=== PATIENT | male | born 1970 ===

== ENCOUNTER → 2022-05-25 08:11 | Outpatient (BNVA) | payer MEDICAID, SELFPAY | PROVIDERS: PCP Family Medicine; Visit Provider Internal Medicine Cardiovascular Disease | DX: I48.19 Other persistent atrial fibrillation (principal); R07.9 Chest pain, unspecified | CPT/HCPCS: 93005; 99202 ==

== ENCOUNTER → 2022-06-01 15:24 | Outpatient (REF) | payer MEDICAID, SELFPAY ==
--- NOTE | 2022-06-01 15:30 | CA_ITS ---
Transthoracic Echocardiogram Patient (Last, First, Middle): Yovany Meraz, Gender: Male Date of : 1970 Age: 52 Procedure Date: 06/01/2022 Procedure Type: Transthoracic Echocardiogram Location: OP Height: 180.34 cm Weight: 111.13 kg BSA: 2.30 m2 Heart Rate: bpm BP: 143 / 84 mmHg Nursing Home Manager: Referring MD: José Miguel Cullen MD Symptoms: I48.19 - Other persistent atrial fibrillation Study Quality: Fair ECG Rhythm: Atrial Fibrillation Conclusions: - The left ventricular systolic function is mildly decreased. The calculated ejection fraction is 42% by biplane method. - No obvious valvular pathology seen on this study. Findings Procedure Information Contrast agent, definity, is being given per protocol without apparent complications. Left Ventricle Normal left ventricular cavity size. There is mildly increased left ventricular wall thickness. The left ventricular systolic function is mildly decreased. The calculated ejection fraction is 42% by biplane method. There is mild global hypokinesis. Diastolic function is indeterminate on the basis of available data. Right Ventricle Mildly increased right ventricular cavity size. There is normal right ventricular systolic function. Atria The left atrium is mildly dilated. The right atrium is normal in size. Aortic Valve There is a normal trileaflet aortic valve. There is no aortic valve stenosis. There is no aortic valve regurgitation. Mitral Valve The mitral valve appears normal. There is trace mitral valve regurgitation. There is no mitral valve stenosis. Pulmonic Valve The pulmonic valve is likely normal. Tricuspid Valve Normal tricuspid valve structure. There is trace tricuspid valve regurgitation. There is no evidence of pulmonary hypertension. Great Vessels The asc aorta is normal in size. Venous The inferior vena cava is mildly dilated and collapses less than 50% with inspiration. Pericardium/Pleural There is no evidence of pericardial effusion. Prior Study Comparison No prior study available for comparison. Recommendations, Care & Conclusions No obvious valvular pathology seen on this study. Measurements 2D Linear Measurements IVSd: 1.04 0.6-0.9/0.6-1.0 cm LVIDd: 4.91 3.9-5.3/4.2-5.9 cm LVIDd Index: 2.13 2.4-3.2/2.2-3.1 cm/m2 LVIDs: 3.71 2.0-3.6 cm LVPWd: 1.06 0.7-1.1 cm Ao Root: 3.40 2.1-3.5 cm LA Diam: 4.70 2.7-3.8/3.0-4.0 cm LAIDs Index: 2.04 1.5-2.3 cm/m2 LV Mass: 235.15 67-162/88-224 g LV Mass Index: 102.24 43-95/49-115 g/m2 LVOT Diam: 2.40 3.0+(-)1.3 cm 2D Systolic Function EF 4C: 39.70 >55% EF 2C: 44.80 >55% EF BiP: 42.10 >55% Mitral Valve MV Pk E: 0.79 MV Decel Time: 205.00 E'Lateral: 11.10 E'Medial: 7.72 E/E' Med: 10.20 E/E' Lat: 7.10 PHT: 60.00 MVA PHT: 3.67 Decel [place]: 3.84 Aortic Valve AoV Pk Nathanael: 1.07 AoV Mn Nathanael: 0.67 AoV VTI: 0.21 AoV Pk Grad: 5.00 Aov Mn Grad: 2.00 PAMELA Cont.VTI: 3.58 LVOT LVOT Pk Nathanael: 0.78 LVOT Mn Nathanael: 0.49 LVOT VTI: 0.16 LVOT Pk Grad: 2.00 LVOT Mn Grad: 1.00 LVOT Diam: 2.40 LVOT Area: 4.52 Diastolic Function MV Pk E: 0.79 E'Medial: 7.72 E/E' Med: 10.20 E' Laterial: 11.10 E/E' Lat: 7.10 Right Ventricle TAPSE (mm): 22.00 Tricuspid Valve TR Pk Nathanael: 2.07 TR Pk Grad: 17.00 RA Press: 15.00 RVSP: 32.00 Great Vessels Aorta Ao Root-2D: 3.40 2.0-3.7 cm Ao Asc: 3.20 2.1-3.4 cm Pulmonary Valve PV Pk Nathanael: 0.92 Peak PV Grad: 3.00 Updated in Other Vendor System with Status of Final Delmer Watson MD electronically signed on 06/03/2022 12:10:54 PM with status of Final
[2022-06-01 16:04] LABS: Hematocrit 45.3 % (42.0-52.0); Hemoglobin 15.3 g/dl (14.0-18.0); Mean Corpuscular HGB Conc 33.8 g/dl (31.0-36.0); Mean Corpuscular Hemoglobin 30.8 pg (27.0-33.0); Mean Corpuscular Volume 91.3 fL (80.0-98.0); Mean Platelet Volume 8.5 fL (9.4-12.4); Platelet Count 226 X10*3/uL (160-400); Red Blood Count 4.96 X10*6/uL (4.60-5.80); Red Cell Distribution Width 12.3 % (11.0-16.0); White Blood Count 5.6 X10*3/uL (4.8-10.8)
[2022-06-01 16:25] LABS: B Type Natriuretic Peptide 77 pg/mL (<100)
[2022-06-01 16:40] LABS: Alanine Aminotransferase 34 U/L (0-40); Albumin Level 4.1 g/dL (3.5-5.0); Alkaline Phosphatase 62 U/L (39-117); Anion Gap 12 (12-20); Aspartate Amino Transferase 19 U/L (5-37); Bilirubin Direct 0.3 mg/dL (0.0-0.5); Bilirubin Total 1.1 mg/dL (0.0-1.0); Blood Urea Nitrogen 15 mg/dL (9-16); Calcium 9.4 mg/dL (8.4-10.2); Carbon Dioxide 27 mmol/L (22-29); Chloride 106 mmol/L (96-108); Estimated Glomerular Filt Rate > 60; Glucose Random 111 mg/dL (60-115); Potassium 4.5 mmol/L (3.3-5.1); Sodium 140 mmol/L (135-145); Total Protein 6.8 g/dL (6.5-8.0)
[2022-06-01 16:55] LABS: TSH reflex Free T4 0.08 uIU/mL (0.32-4.0)
[2022-06-01 19:33] LABS: Free T4 (Free Thyroxine) 1.74 ng/dL (0.71-1.85)
== END ==
LOC: HO.CARD 15:24
PROVIDERS: PCP Family Medicine; Visit Provider Internal Medicine Cardiovascular Disease
DX: I48.19 Other persistent atrial fibrillation (principal)
CPT/HCPCS: 36415; 80048; 80076; 83880; 84439; 84443; 85027; 93306; Q9957

== ENCOUNTER → 2022-06-08 09:13 | Outpatient (REF) | payer MEDICAID, SELFPAY ==
--- NOTE | ~2022-06-08 | NM_ITS ---
Lexiscan Myocardial perfusion study Indication: Chest pain, assess for coronary disease and ischemia Technique: The patient was brought in for a Lexiscan perfusion study on 06/08/2022 and was injected 0.4 mg of Lexiscan intravenously. Within a minute of this injection 40 mCi of sestamibi was given intravenously. Images were obtained using the SPECT gamma camera interlaced with the gating device. Images were obtained in supine position. Resting perfusion study was performed on 06/09/2022. Patient was administered 40 mCi of sestamibi intravenously at rest. Images were then obtained in supine position. Total DLP 132mGy-cm. Images were processed with the software and compared side to side in short axis, horizontal long axis and vertical long axis views. Findings: Raw acquisition reviewed. The stress perfusion study showed diminished tracer uptake along the inferior wall. There is significant improvement with CT attenuation correction suggestive of diaphragmatic attenuation artifact. The gated study shows low normal LV systolic function with calculated LVEF of 52%. LV cavity is normal in size. The gated study shows normal wall thickening and contraction of segments. Resting study shows diminished tracer uptake along the inferior wall. There is improvement with CT attenuation correction suggesting diaphragmatic attenuation artifact. Gating at rest reveals normal wall motion with ejection fraction at 51%. The findings are consistent with fixed inferior defect, suspected to be from diaphragmatic attenuation artifact. No reversible defects. NM/NM erika perf SPECT rest & str Impression: 1. Myocardial perfusion imaging study shows no evidence of ischemia or infarction. 2. Gated LVEF is 52% during stress and 51% during rest. 3. Transient ischemic dilatation not present. EKG component of the test reported separately.
--- NOTE | 2022-06-08 09:16 | CA_ITS ---
Acquisition Time: 2022-06-08 09:24:32 Total Exercise Time: 00:02:00 Test Indications: Chest Pain Medications: Protocol: LEXISCAN Max HR: 088 BPM 52% of Pred: 167 BPM Max BP: 120/094 mmHG Max Work Load: 1.0 METS Pharmacological stress test using Lexiscan while sitting. Pt tolerated well, EKG with A-fib non-diagnostic for ischemia. Normotensive response to Lexiscan injection. Nuclear images to follow. Test reviewed with Dr. Cullen Referred By: José Miguel Cullen Overread By: Kristy Tolbert NP
== END ==
LOC: HO.CARD 09:13
PROVIDERS: PCP Family Medicine; Visit Provider Internal Medicine Cardiovascular Disease
DX: R07.9 Chest pain, unspecified (principal)
CPT/HCPCS: 78452; 93017; A9500; J0280; J2785

== ENCOUNTER → 2022-09-23 12:41 | Outpatient (BNVA) | payer MEDICAID, SELFPAY | PROVIDERS: PCP Family Medicine; Visit Provider Nurse Practitioner Family | DX: G47.33 Obstructive sleep apnea (adult) (pediatric) (principal); G47.26 Circadian rhythm sleep disorder, shift work type; R40.0 Somnolence | CPT/HCPCS: 99202 ==

== ENCOUNTER 2022-11-22 11:20 | Outpatient (REF) | payer MEDICAID, SELFPAY ==
[2022-11-22 14:21] LABS: TSH reflex Free T4 0.59 uIU/mL (0.32-4.0)
== END 2022-11-22 11:21 | disposition home or self-care (01) ==
LOC: HO.HHCL 11:20
PROVIDERS: Visit Provider Family Medicine
DX: E03.9 Hypothyroidism, unspecified (principal)
CPT/HCPCS: 36415; 84443

== ENCOUNTER → 2023-01-25 10:34 | Outpatient (REF) | payer MEDICAID, SELFPAY | LOC: HO.SL 10:34 | PROVIDERS: PCP Family Medicine; Visit Provider Nurse Practitioner Family | DX: G47.33 Obstructive sleep apnea (adult) (pediatric) (principal); R40.0 Somnolence; I48.19 Other persistent atrial fibrillation | CPT/HCPCS: 95806 ==

== ENCOUNTER → 2023-01-25 10:44 | Outpatient (BNV) | payer MEDICAID, SELFPAY | PROVIDERS: PCP Family Medicine; Visit Provider Psychiatry & Neurology Neurology | DX: G47.33 Obstructive sleep apnea (adult) (pediatric) (principal) | CPT/HCPCS: 95806 ==

== ENCOUNTER 2023-03-13 09:08 | Outpatient (REF) | payer MEDICAID, SELFPAY ==
[2023-03-13 12:08] LABS: Estimated Average Glucose 111 mg/dL; Hemoglobin A1C 152.8304 umol/L; Hemoglobin A1c % 5.5 % (<6.0)
[2023-03-13 12:11] LABS: Cholesterol 124 mg/dL (<200); HDL Cholesterol 48 mg/dL (>40); LDL Cholesterol Calculated 57 mg/dL (<100); Triglycerides 97 mg/dL (<150)
[2023-03-13 12:17] LABS: Alanine Aminotransferase 30 U/L (0-40); Albumin Level 4.1 g/dL (3.5-5.0); Alkaline Phosphatase 49 U/L (39-117); Anion Gap 11 (12-20); Aspartate Amino Transferase 21 U/L (5-37); Bilirubin Total 0.5 mg/dL (0.0-1.0); Blood Urea Nitrogen 15 mg/dL (9-16); Calcium 9.1 mg/dL (8.4-10.2); Carbon Dioxide 26 mmol/L (22-29); Chloride 109 mmol/L (96-108); Estimated Glomerular Filt Rate > 60; Glucose Random 101 mg/dL (60-115); Potassium 4.4 mmol/L (3.3-5.1); Sodium 142 mmol/L (135-145); Total Protein 7.2 g/dL (6.5-8.0)
[2023-03-13 12:22] LABS: TSH reflex Free T4 3.03 uIU/mL (0.32-4.0)
[2023-03-13 12:36] LABS: Reflex LDLD? No
== END 2023-03-13 09:09 | disposition home or self-care (01) ==
LOC: HO.HHCL 09:08
PROVIDERS: Visit Provider Family Medicine
DX: E03.9 Hypothyroidism, unspecified (principal); E78.5 Hyperlipidemia, unspecified; I10 Essential (primary) hypertension; E66.09 Other obesity due to excess calories; Z68.34 Body mass index [BMI] 34.0-34.9, adult
CPT/HCPCS: 36415; 80053; 80061; 83036; 84443

== ENCOUNTER 2024-01-01 11:00 | Outpatient (AMB) | payer MEDICAID, SELFPAY ==
--- NOTE | 2024-01-01 11:02 | A.OFFVIS_ITS ---
Vital Signs 01/01/24 11:05 Height 5 ft 11 in Weight 253 lb 8.505 oz BMI 35.4 BP 136/84 Blood Pressure Location Lt brachial Position Sitting Pulse 76 Intake Visit Reasons: over due 1 year follow up Intake Note: Overdue follow-up with ekg feeling good Outsole Molder Required: No Allergies No Known Allergies Allergy (Verified 09/23/22 13:08) Medication List - Last Reconciled 01/01/24 by José Miguel Cullen MD amlodipine 10 mg PO DAILY atorvastatin 20 mg PO BEDTIME carvedilol 25 mg PO BID chlorthalidone 25 mg PO DAILY cholecalciferol (vitamin D3) (Vitamin D3) 25 mcg PO DAILY hydralazine 10 mg PO BID levothyroxine 200 mcg PO QAM lisinopril 40 mg PO BID loratadine 10 mg PO PRN magnesium oxide 400 mg PO DAILY 30 days melatonin 5 mg PO BEDTIME 30 days rivaroxaban (Xarelto) 20 mg PO QPM zolpidem 10 mg PO BEDTIME HPI Comments Details: Yovany comes for follow-up after a very long gap. He had been referred to me last year for new onset atrial fibrillation that time had exertional chest pain. He subsequently had undergone myocardial perfusion imaging which was within normal limits although echocardiogram at shown low EF of over 42%. Since then he never came back for follow-up and says that he was just busy with work and did not think it was important to follow-up. He said he continues to have no symptoms. He is mostly episcopalian with his medication although says sometimes forgets to take medications. However he says he takes Xarelto regularly. He has had no bleeding issues or neurologic events. He has not had any obvious heart failure symptoms. Denies any orthopnea, PND, leg edema. Denies any prolonged irregular heartbeat or palpitations. No lightheadedness, syncope. He is supposed to be on CPAP although currently not using the same says he needs to follow-up with that as well. [facility] Surgical History H/O nephrolithotomy with removal of calculi Family History Mother No problems noted. Father No problems noted. Social History Alcohol intake: current Alcohol intake frequency: holidays/special occasions only Patient Tobacco Use Status: Never used Tobacco Review of Systems Const Denies chills, Denies fatigue, Denies fever(s), Denies frequent falls, Denies weakness, Denies weight gain and Denies weight loss ENT Denies dizziness Card Denies chest pain, Denies leg edema, Denies lightheadedness, Denies palpitations, Denies dyspnea, Denies dyspnea on exertion, Denies orthopnea and Denies other (loss of consciousness) Resp Denies cough, Denies dyspnea and Denies dyspnea on exertion GI Denies hematochezia and Denies change in stool character Musc Denies abnormal gait, Denies muscle weakness, Denies numbness, Denies radiating pain into limb and Denies tingling Neuro Denies Abnormal speech present, Denies abnormal gait, Denies dizziness, Denies frequent falls, Denies numbness, Denies tingling and Denies weakness Endo Denies fatigue and Denies palpitations Physical Exam Vital Signs: Last Vital Signs Pulse 76 01/01/24 11:05 BP 136/84 01/01/24 11:05 BMI result Body Mass Index 35.4 Const General: cooperative, comfortable, no acute distress, alert, awake and Physically active Nutritional Appearance: obese Orientation/consciousness: patient oriented x3 Limitations: no limitations Neck Neck: Yes trachea midline, Yes supple and Yes no JVD Resp Effort & Inspection: normal respiratory effort Auscultation: clear to auscultation bilaterally Cardio Jugular venous distension: no JVD Rate: regular rate Rhythm: abnormal rhythm irregularly irregular Heart sounds: S1 normal heart sound present, S2 normal heart sound present, no click, no gallops, no murmurs and no rubs GI Auscultation: normal bowel sounds Skin General skin exam: no rashes or lesions noted Neuro General: patient oriented x3 and no focal motor deficits Speech: No Abnormal speech present Extrem General: Yes no clubbing, cyanosis or edema Office Procedures EKG Details: EKG shows atrial fibrillation with PVCs [id number], Complete Assessment & Plan Assessment & Plan (1) Persistent atrial fibrillation: Code(s): I48.19 - Other persistent atrial fibrillation Category: Medical Plan: Patient with persistent atrial fibrillation appears to be rate control at this point time. Continues to say does not have any significant symptoms. Although given his age we should probably pursue rhythm control approach but this will depend on his underlying structural abnormality. If he has significant biatrial enlargement unlikely to succeed with rhythm management. Discussed with him. Continue rate control with carvedilol therapy. Full oral anticoagulation with Xarelto. Importance of oral anticoagulation therapy was discussed to reduce risk of stroke. (2) Cardiomyopathy: Code(s): I42.9 - Cardiomyopathy, unspecified Category: Medical Plan: Cardiomyopathy process with [id number] LV systolic dysfunction by last echocardiogram. Clinically having no symptoms or signs of congestive heart failure. Possibly related to persistent atrial fibrillation and/or untreated sleep apnea longstanding hypertension. Will repeat echocardiogram to assess for any progressive LV systolic dysfunction biatrial chamber size. Currently on neurohormonal modulation with carvedilol as well as lisinopril. Blood pressure is well optimized. Encouraged to pursue follow-up with sleep specialty to pursue CPAP therapy. Signs and symptoms of heart failure were discussed. Will follow up in the clinic in 4 weeks time after above-mentioned work up. Thank you for allowing me to partake in his care Orders: Orders CA echo transthoracic complete Today I42.9 - Cardiomyopathy, unspecified ECG 3 day holter monitor Today I48.19 - Other persistent atrial fibrillation Coding Level of Care Code Est Pt Level 4 (23660) Diagnoses Persistent atrial fibrillation I48.19 Cardiomyopathy I42.9 CPT Codes EKG - CPT: 16077-[id number], Complete ([id number])
[2024-01-01 11:05] VITALS: BP 136/84; PULSE 76; BMI 35.4
== END 2024-01-01 11:38 | disposition home or self-care (01) ==
PROVIDERS: PCP Family Medicine; Visit Provider Internal Medicine Cardiovascular Disease
DX: I48.19 Other persistent atrial fibrillation (principal); I42.9 Cardiomyopathy, unspecified
CPT/HCPCS: 93010; 99214

== ENCOUNTER → 2024-01-01 11:00 | Outpatient (BNVA) | payer MEDICAID, SELFPAY | PROVIDERS: PCP Family Medicine; Visit Provider Internal Medicine Cardiovascular Disease | DX: I48.19 Other persistent atrial fibrillation (principal); I42.9 Cardiomyopathy, unspecified; Z79.899 Other long term (current) drug therapy | CPT/HCPCS: 93005; 99212 ==

== ENCOUNTER → 2024-04-24 07:56 | Outpatient (REF) | payer MEDICAID, SELFPAY ==
--- NOTE | 2024-04-24 08:00 | CA_ITS ---
Transthoracic Echocardiogram Patient (Last, First, Middle): Yovany Meraz, Gender: Male Date of : 1970 Age: 54 Procedure Date: 04/24/2024 Procedure Type: Transthoracic Echocardiogram Location: OP Height: 180.34 cm Weight: 112.04 kg BSA: 2.31 m2 Heart Rate: bpm BP: 160 / 80 mmHg Human Resources Operations Specialist: TO Referring MD: José Miguel Cullen MD Crew Boat Operator: José Miguel Cullen MD Symptoms: I42.9 - Cardiomyopathy, unspecified Study Quality: Adequate w contrast ECG Rhythm: Atrial Fibrillation Conclusions: - 1. Moderate to severely dilated left ventricle with LVEF of 20 25% 2. Severe biatrial enlargement 3. Moderate to severely reduced RV systolic function 4. Moderate mitral regurgitation due to annular dilatation 5. Normal RV systolic pressure 6. Trivial pericardial effusion Findings Procedure Information Contrast agent, definity, is being given per protocol without apparent complications. Left Ventricle Moderately increased left ventricular cavity size. There is severely increased left ventricular wall thickness. The left ventricular systolic function is severely decreased. The visually estimated ejection fraction is between 20-25%. Diastolic function is indeterminate on the basis of available data. Right Ventricle Mildly increased right ventricular cavity size. There is moderate to severely decreased right ventricular systolic function. Atria Severe biatrial enlargement. There is no evidence of interatrial shunt. Aortic Valve Normal aortic valve structure and function. There is no aortic valve stenosis. There is trace (trivial) aortic valve regurgitation. Mitral Valve There is mild anterior and posterior mitral leaflet thickening. There is moderate mitral valve regurgitation. There is no mitral valve stenosis. There is moderate mitral annular dilatation. Pulmonic Valve The pulmonic valve is likely normal. There is trace to mild pulmonic valve regurgitation. Tricuspid Valve Normal tricuspid valve structure. There is mild tricuspid valve regurgitation. The right ventricular systolic pressure is normal. The right ventricular systolic pressure is 27 mmHg. Normal right atrial pressure. There is no evidence of pulmonary hypertension. Great Vessels All visible segments of the aorta are normal in size. The pulmonary artery was not well visualized. Venous The inferior vena cava is normal in size and collapses greater than 50% with inspiration. Pericardium/Pleural There is a trivial loculated pericardial effusion overlying the left ventricle. Measurements 2D Linear Measurements IVSd: 1.05 0.6-0.9/0.6-1.0 cm LVIDd: 6.72 3.9-5.3/4.2-5.9 cm LVIDd Index: 2.91 2.4-3.2/2.2-3.1 cm/m2 LVIDs: 6.08 2.0-3.6 cm LVPWd: 0.89 0.7-1.1 cm LA Diam: 5.20 2.7-3.8/3.0-4.0 cm LAIDs Index: 2.25 1.5-2.3 cm/m2 LV Mass: 359.14 67-162/88-224 g LV Mass Index: 155.47 43-95/49-115 g/m2 LVOT Diam: 2.30 3.0+(-)1.3 cm 2D Systolic Function EF 4C: 27.30 >55% EF 2C: 23.70 >55% EF BiP: 24.80 >55% Mitral Valve MV Pk E: 0.88 MV Decel Time: 139.00 E'Lateral: 5.80 E'Medial: 4.75 E/E' Med: 18.40 E/E' Lat: 15.10 PHT: 41.00 MVA PHT: 5.37 Decel [place]: 6.34 MR Vol - PW Dopp: 32.30 MR VTI: 1.70 MR ERO: 19.00 MR Alias Nathanael: 0.34 MR RAD: 0.70 Aortic Valve AoV Pk Nathanael: 0.89 AoV Pk Grad: 3.00 LVOT LVOT Pk Nathanael: 0.58 LVOT Mn Nathanael: 0.39 LVOT VTI: 0.08 LVOT Pk Grad: 1.00 LVOT Mn Grad: 1.00 LVOT Diam: 2.30 LVOT Area: 4.15 Diastolic Function MV Pk E: 0.88 E'Medial: 4.75 E/E' Med: 18.40 E' Laterial: 5.80 E/E' Lat: 15.10 Right Ventricle TAPSE (mm): 10.20 TVS' Nathanael: 6.53 Tricuspid Valve TR Pk Nathanael: 2.20 TR Pk Grad: 19.00 RA Press: 8.00 RVSP: 27.00 Great Vessels Aorta Sinus of Valsalva: 3.55 2.0-3.[address] [place]: 2.96 1.7-3.4 cm Ao Asc: 3.60 2.1-3.4 cm Ao Arch: 3.30 Updated in Other Vendor System with Status of Final José Miguel Cullen MD electronically signed on 04/24/2024 11:54:16 AM with status of Final
== END ==
LOC: HO.CARD 07:56
PROVIDERS: PCP Family Medicine; Visit Provider Internal Medicine Cardiovascular Disease
DX: I48.19 Other persistent atrial fibrillation (principal)
CPT/HCPCS: 93242; 93306; Q9957

== ENCOUNTER → 2024-04-24 08:00 | Outpatient (BNV) | payer MEDICAID, SELFPAY | PROVIDERS: PCP Family Medicine; Visit Provider Internal Medicine Cardiovascular Disease | DX: I48.91 Unspecified atrial fibrillation (principal) | CPT/HCPCS: 93244; 93306 ==

== ENCOUNTER 2024-04-26 13:45 | Outpatient (AMB) | payer MEDICAID, SELFPAY ==
[2024-04-26 13:56] VITALS: BP 150/90; PULSE 93; BMI 36.0
--- NOTE | 2024-04-26 13:56 | A.OFFVIS_ITS ---
Vital Signs 04/26/24 13:56 Height 5 ft 11 in Weight 258 lb 6.108 oz BMI 36.0 BP 150/90 H Blood Pressure Location Lt brachial Position Sitting Pulse 93 Pulse Source Pulse Oximeter Intake Visit Reasons: f/up echo-per NS Intake Note: f/up-echo [place] Regenerator Required: No Accompanied by: Self / Same As Patient Allergies No Known Allergies Allergy (Verified 09/23/22 13:08) Medication List - Last Reconciled 04/26/24 by Joseph Aguilar NP amlodipine 10 mg PO DAILY atorvastatin 20 mg PO BEDTIME carvedilol 25 mg PO BID chlorthalidone 25 mg PO DAILY cholecalciferol (vitamin D3) (Vitamin D3) 25 mcg PO DAILY hydralazine 10 mg PO BID levothyroxine 200 mcg PO QAM lisinopril 40 mg PO BID loratadine 10 mg PO PRN magnesium oxide 400 mg PO DAILY 30 days melatonin 5 mg PO BEDTIME 30 days rivaroxaban (Xarelto) 20 mg PO QPM zolpidem 10 mg PO BEDTIME HPI Comments Details: This is a 54-year-old male patient presenting for a follow-up visit after an echocardiogram. He has a history of persistent AFib, cardiomyopathy, hypertension, sleep apnea, and obesity. The patient reports feeling tired today due to working overnight and inadequate sleep. He states he does not feel like this all the time and denies any exertional chest pain, shortness of breath, orthopnea, PND, leg edema, dizziness, presyncope, or syncope. The patient acknowledges being noncompliant with his medications, states forgets to take them sometimes for unclear reason. 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 [facility] Surgical History H/O nephrolithotomy with removal of calculi Family History Mother No problems noted. Father No problems noted. Social History Alcohol intake: current Alcohol intake frequency: holidays/special occasions only Patient Tobacco Use Status: Never used Tobacco Review of Systems Const Denies chills, Denies fatigue, Denies fever(s), Denies frequent falls, Denies weakness, Denies weight gain and Denies weight loss ENT Denies dizziness Card Denies chest pain, Denies leg edema, Denies lightheadedness, Denies palpitations, Denies dyspnea and Denies dyspnea on exertion Resp Denies cough, Denies dyspnea and Denies dyspnea on exertion GI Denies hematochezia Musc Denies abnormal gait, Denies muscle weakness, Denies numbness, Denies radiating pain into limb and Denies tingling Neuro Denies abnormal gait, Denies dizziness, Denies frequent falls, Denies numbness, Denies tingling and Denies weakness Endo Denies fatigue and Denies palpitations Physical Exam Vital Signs: Last Vital Signs Pulse 93 04/26/24 13:56 BP 150/90 H 04/26/24 13:56 BMI result Body Mass Index 36.0 Const General: cooperative, healthy appearing, comfortable and no acute distress Orientation/consciousness: patient oriented x3 HEENT Head: Yes normal to inspection Neck Neck: Yes normal visual inspection, Yes trachea midline and Yes supple Chest Chest palpation & inspection: normal inspection of the chest Resp Effort & Inspection: normal respiratory effort Auscultation: clear to auscultation bilaterally, no crackles, no rales, no rho nchi and no wheezes Cardio Jugular venous distension: no JVD Palpation: normal PMI Rhythm: abnormal rhythm irregularly irregular Heart sounds: S1 normal heart sound present, S2 normal heart sound present, no click, no gallops, no murmurs and no rubs Peripheral pulses: Peripheral pulses 2+ throughout GI Inspection: Yes normal to inspection Palpation (GI): Soft to palpation Auscultation: normal bowel sounds Skin General skin exam: no rashes or lesions noted Neuro General: patient oriented x3 Extrem General: Yes normal to inspection, No no pedal edema and No calf tenderness Psych Appearance: grossly normal Mental Status: mental status grossly normal Speech and movement: Normal speech and movement present Assessment & Plan Assessment & Plan (1) Persistent atrial fibrillation: Code(s): I48.19 - Other persistent atrial fibrillation Category: Medical (2) Heart failure with reduced ejection fraction: Code(s): I50.20 - Unspecified systolic (congestive) heart failure Category: Medical (3) Hypertension: Code(s): I10 - Essential (primary) hypertension Category: Medical (4) Cardiomyopathy: Code(s): I42.9 - Cardiomyopathy, unspecified Category: Medical (5) TONYA on CPAP: Code(s): G47.33 - Obstructive sleep apnea (adult) (pediatric) Category: Medical Plan 06/09/2022- myocardial perfusion imaging study was normal. 04/24/2024- echo showed significant drop in the LVEF at 20-25%, severe biatrial enlargement, moderate to severe RV systolic function, moderate mitral regurgitation due to annular dilation, trivial pericardial effusion. Despite these findings in the echo, patient denies any symptoms. With his history of persistent AFib, likely what contributed to the decrease in his EF. The patient is also noncompliant with his medications and has been irregular with the Xarelto. The risk of stroke associated with this condition were explained, particularly with such a low EF fraction his increased risk of sudden cardiac . The patient acknowledges understanding of this. A detailed discussion was held regarding cardioversion and ablation therapy for his AFib. Due to his noncompliance with anticoagulation therapy, we will proceed with a CEE cardioversion next week with Dr. Cullen. If successful, we will consider a rhythm control approach, potentially with amiodarone. Procedure, indications, risks and benefits were thoroughly explained. It was emphasized multiple times that the patient was to follow his medication regimen. Continue full anticoagulation therapy with Xarelto. Continue with the current rate and rhythm control with carvedilol therapy. Patient continues to be on multiple blood pressure medications, however his blood pressure remains elevated today. We will switch from his lisinopril to valsartan for better management. Recommend heart healthy diet, regular exercise, weight loss, and aggressive blood pressure management ideally less than 130/80 and an LDL less than 100. Patient is working on obtaining a CPAP machine at this time. Emphasized the role of CPAP therapy and improving his cardiovascular function and overall well- being. We will follow-up with the patient after cardioversion. In the interim, patient will call us with any concerns. This note was generated using voice recognition software. While every effort has been made to ensure accuracy and proper estimator, there may be occasional errors that could affect the content or meaning of the described symptoms. Orders: Orders Cardioversion with CEE 1 Week I42.9 - Cardiomyopathy, unspecified, I48.19 - Other persistent atrial fibrillation Medications: New valsartan 160 mg PO BID 60 tabs 1RF Coding Level of Care Code Est Pt Level 4 (47711) Diagnoses Persistent atrial fibrillation I48.19 Heart failure with reduced ejection fraction I50.20 Hypertension I10 Cardiomyopathy I42.9 TONYA on CPAP G47.33 Time Spent (min) 33 Comment Time spent in reviewing the chart, test results, assessment, counseling and documentation.
== END 2024-04-26 14:55 | disposition home or self-care (01) ==
PROVIDERS: PCP Family Medicine
DX: I48.19 Other persistent atrial fibrillation (principal); I50.20 Unspecified systolic (congestive) heart failure; I10 Essential (primary) hypertension; I42.9 Cardiomyopathy, unspecified; G47.33 Obstructive sleep apnea (adult) (pediatric)
CPT/HCPCS: 99214

== ENCOUNTER → 2024-04-26 13:45 | Outpatient (BNVA) | payer MEDICAID, SELFPAY | PROVIDERS: PCP Family Medicine | DX: I48.19 Other persistent atrial fibrillation (principal); I11.0 Hypertensive heart disease with heart failure; I50.20 Unspecified systolic (congestive) heart failure; I42.9 Cardiomyopathy, unspecified; G47.33 Obstructive sleep apnea (adult) (pediatric) | CPT/HCPCS: 99212 ==

== ENCOUNTER 2024-10-09 10:38 | Outpatient (REF) | payer MEDICAID, SELFPAY ==
[2024-10-09 13:50] LABS: Alanine Aminotransferase 44 U/L (0-40); Albumin Level 4.4 g/dL (3.5-5.0); Alkaline Phosphatase 50 U/L (39-117); Anion Gap 11 (12-20); Aspartate Amino Transferase 45 U/L (5-37); Blood Urea Nitrogen 22 mg/dL (9-16); Calcium 9.1 mg/dL (8.4-10.2); Carbon Dioxide 30 mmol/L (22-29); Chloride 104 mmol/L (96-108); Cholesterol 200 mg/dL (<200); Estimated Glomerular Filt Rate > 60; HDL Cholesterol 69 mg/dL (>40); Potassium 3.6 mmol/L (3.3-5.1); Sodium 141 mmol/L (135-145); Total Protein 7.0 g/dL (6.5-8.0); Triglycerides 81 mg/dL (<150)
[2024-10-09 14:24] LABS: Reflex LDLD? No
[2024-10-09 14:31] LABS: Free T4 (Free Thyroxine) 1.10 ng/dL (0.71-1.85)
== END 2024-10-09 10:39 | disposition home or self-care (01) ==
LOC: HO.HHCL 10:38
PROVIDERS: PCP Family Medicine; Visit Provider Family Medicine
DX: E03.9 Hypothyroidism, unspecified (principal); I48.91 Unspecified atrial fibrillation; E78.5 Hyperlipidemia, unspecified; I10 Essential (primary) hypertension
CPT/HCPCS: 36415; 80053; 80061; 84439; 84443